=== PATIENT | male | born 1940 | race Caucasian/White ===

== ENCOUNTER 2020-08-30 00:30 | Outpatient (CLI) | payer MEDICARE, SELFPAY ==
[2020-08-30 17:34] LABS: SARS-CoV-2 RNA PCR Negative
== END 2020-08-30 00:31 | disposition home or self-care (01) ==
LOC: ANHCOVIDDT 00:30
PROVIDERS: PCP Family Medicine; Visit Provider Internal Medicine Gastroenterology
DX: Z01.812 Encounter for preprocedural laboratory examination (principal); Z20.822 Contact with and (suspected) exposure to COVID-19
CPT/HCPCS: C9803; U0003; U0005

== ENCOUNTER 2020-09-02 01:29 | Day surgery (SDC) | payer MEDICARE, SELFPAY ==
[2020-08-25 10:22] VITALS: BMI 23.4
[2020-09-02] MEDS: LACTATED RINGERS 1,000 ML 150 ML IV CONT (06:32)
[2020-09-02 06:33] VITALS: BP 125/64; PULSE 81; RESP 20; TEMP 36.6; O2SAT 99; BMI 23.6
--- NOTE | 2020-09-02 07:15 | WPDANESEPPF ---
Anes - Initial Pre Proc Eval Procedure: Operation Date: 09/02/20 07:30 Proposed Procedures p Esophagogastroduodenoscopy - Kavon Millard MD Date/Time: 09/02/20 07:15 Surgeon: Kavon Millard MD Pre Op Diagnosis: GERD, Dysphagia Patient Data Age: 79 Gender: M Height: 5 ft 8 in Weight: 70.6 kg Last Vital Signs Temp 97.8 F 09/02/20 06:33 Pulse 81 09/02/20 06:33 Resp 20 09/02/20 06:33 BP 125/64 09/02/20 06:33 Pulse Ox 99 09/02/20 06:33 Allergies Allergy/AdvReac Type Severity Reaction Status Date / Time Sulfa (Sulfonamide Allergy Intermediate Rash Verified 09/02/20 06:32 Antibiotics) amoxicillin Allergy Unknown Rash Verified 09/02/20 06:32 Home Medications Medication Instructions Recorded Confirmed Type omeprazole 40 mg PO BID 08/25/20 08/25/20 History Patient hx anesthesia problems: none Family hx anesthesia problems: none [facility] Past Medical History Medical History (Updated 09/01/20 @ 14:28 by Mark Robins MD) GERD (gastroesophageal reflux disease) Social History Social History Smoking status: Never smoker Alcohol intake: never Substance use type: does not use Living arrangements: with family Spiritual care concerns: No Anes - Eval Final PreProcedure Day of Procedure 09/02/20 07:15 Patient weight: normal Heart: regular rate and rhythm Lungs: clear to auscultation Airway: Mallampati scale class II Neurological: alert and oriented Last oral intake: >/= 8 hours ASA classification: II Emergent: no Anesthetic plan: proceed Anesthesia type and monitoring: general GIVS and standard monitoring Informed Consent: The patient's anesthetic plan and its attendant risks and benefits were discussed with the patient/family/POA. Questions were solicited and answers provided to the satisfaction of the patient/family/POA.
[2020-09-02] MEDS: BENZOCAINE (*SP) 60 ML SPRAY CAN (HURRICAINE) 1 SPRAY MUCOUS MEM (07:31)
--- NOTE | 2020-09-02 07:36 | WPDGICN ---
Assessment and Plan Assessment and plan (1) GERD (gastroesophageal reflux disease): Code(s): K21.9 - Gastro-esophageal reflux disease without esophagitis Status: Inactive Assessment and Plan: Patient has chronic acid reflux now requiring higher doses of proton pump inhibitor therapy. Plan to evaluate with EGD. As symptoms improve will see if we can take Prilosec to40mg once a day and supplement this with 2nd dose as needed. Further recommendations will be given after endoscopy. Anti-reflux measures are reinforce today. (2) Dysphagia: Code(s): R13.10 - Dysphagia, unspecified Status: Acute Assessment and Plan: Patient reports slow passage of more solid foods. This is improved with higher dose of PPI. Plan is for EGD to assess more thoroughly GI Consult Note Consult date/time: 09/02/20 07:36 HPI: Eduardo Mckay is a 79 year old male Seen in evaluation at the request of Dr. Hayward. patient has a history of acid reflux treated with omeprazole 40 mg p.o. daily. Patient continued to have difficulties with heartburn acid regurgitation difficulty swallowing 2 months ago his dose of omeprazole was doubled to40mg p.o. b.i.d. with marked improvement of those symptoms. Because of difficulty swallowing and poor response to average dose PPI patient presents today for EGD. Patient denies any weight loss or bleeding does report diarrhea stools over last 2 weeks. His family history is noncontributory. Review of Systems Review of Systems: All systems reviewed & are unremarkable except as noted in HPI and below PMFSH Past Medical History Medical History (Updated 09/02/20 @ 07:38 by Kavon Millard MD) GERD (gastroesophageal reflux disease) Social History Social History Smoking status: Never smoker Alcohol intake: never Substance use type: does not use Living arrangements: with family Spiritual care concerns: No Meds Home Medications and Allergies Home Medications Medication Instructions Recorded Confirmed Type omeprazole 40 mg PO BID 08/25/20 08/25/20 History Allergies Allergy/AdvReac Type Severity Reaction Status Date / Time Sulfa (Sulfonamide Allergy Intermediate Rash Verified 09/02/20 06:32 Antibiotics) amoxicillin Allergy Unknown Rash Verified 09/02/20 06:32 Vital Signs Vital Signs - 24 hr 09/02/20 06:33 Temperature 97.8 F Pulse Rate 81 Respiratory Rate 20 Blood Pressure 125/64 Pulse Oximetry 99 Exam Narrative: Exam Narrative: Physical exam reveals patient to be alert. Vital signs stable. HEENT exam unremarkable. Patient is anicteric. Lungs are clear to auscultation and percussion. Heart is without murmur or extra sounds. Abdominal exam bowel sounds are present soft nontender with no organomegaly. Digital external rectal exam is normal.
[2020-09-02 07:39] VITALS: BP 135/74; PULSE 73; RESP 19; O2SAT 97
[2020-09-02 07:49] VITALS: BP 114/69; PULSE 71; RESP 19; O2SAT 99
[2020-09-02 07:59] VITALS: BP 122/75; PULSE 74; RESP 20; O2SAT 99
== END 2020-09-02 08:22 | disposition home or self-care (01) ==
PROVIDERS: PCP Family Medicine; Visit Provider Internal Medicine Gastroenterology
PROC: 0DJ08ZZ Inspection of Upper Intestinal Tract, Via Natural or Artificial Opening Endoscopic (ICD-10-PCS; CPT 43235; principal; 2020-09-02 07:30)
DX: K21.9 Gastro-esophageal reflux disease without esophagitis (principal); R13.10 Dysphagia, unspecified
CPT/HCPCS: 43239; 43450; 87081; C9803; J2704; J7120; U0003; U0005